=== PATIENT | female | born 1945 | race Caucasian/White ===

== ENCOUNTER 2017-02-11 12:09 | Inpatient (IN) | payer MEDICARE, OTHER ==
[~2017-02-11] VITALS: Ht 167.6 cm; Wt 57.8 kg
[~2017-02-11 12:09] MED LIST: DIVA250T51 PO; Divalproex Sodium PO; LEVO25TA6 PO
[2017-02-11 13:55] LABS: Basophils # (auto) 0 uL; Basophils % (auto) 0.1 % (0.0-2.0); CONDITION Y; Eosinophils # (auto) 0.1 uL; Eosinophils % (auto) 1.9 % (0.0-7.0); Hematocrit 36.9 % (36.0-46.0); Hemoglobin 12.5 g/dL (12.2-16.2); Lymphocytes # (auto) 1.1 uL; Lymphocytes % (auto) 23.7 % (10.0-50.0); Mean Corpuscular Hemoglobin 33.6 pg (28.0-32.0); Mean Corpuscular Hgb Conc. 33.9 g/dL (32.0-36.0); Mean Corpuscular Volume 99.1 fL (80.0-100.0); Mean Platelet Volume 8.3 fL (7.4-10.4); Monocytes # (auto) 0.5 uL; Monocytes % (auto) 10.7 % (0.0-12.0); Neutrophils % (auto) 63.6 % (37.0-80.0); Platelet Count (auto) 152 10^3/uL (140-450); Red Cell Distribution Width 13.8 % (11.6-16.0); White Blood Cell 4.7 10^3/uL (4.4-10.8)
[2017-02-11 14:01] LABS: INR 0.99 (0.9-1.15); Partial Thromboplastin Time 23.8 sec (22.64-33.71); Prothrombin Time 10.8 sec (9.37-12.3)
[2017-02-11 14:16] LABS: Albumin 3.6 g/dL (3.4-5.0); Alkaline Phosphatase 33 U/L (45-117); Anion Gap 7 (5-15); Aspartate Aminotransferase 12 U/L (15-37); BUN/Creatinine Ratio 15.2; Bilirubin, Total 0.5 mg/dL (0.2-1.0); Blood Urea Nitrogen 23 mg/dL (7-18); Calcium 9.2 mg/dL (8.5-10.1); Carbon Dioxide 28 mmol/L (21-32); Chloride 103 mmol/L (98-107); GFR African American 44 mL/min; GFR Non-African American 36 mL/min; Glucose 109 mg/dL (74-106); Potassium 5.1 mmol/L (3.5-5.1); Sodium 138 mmol/L (136-145); Total Protein 7.1 g/dL (6.4-8.2)
[2017-02-11] MEDS ORDERED: SODIUM CHLORIDE 0.9% 1,000 ML IVB ONE (16:34)
[2017-02-11 16:43] LABS: Urine Bilirubin Negative (Negative); Urine Blood Negative /uL (Negative); Urine Color Yellow (Yellow); Urine Glucose Normal (Normal); Urine Ketone Negative (Negative); Urine Mucus FEW (None Seen); Urine Nitrite Negative (Negative); Urine RBC 4 /hpf (0 - 4); Urine Squamous Epithelial Cell MANY /hpf (<5); Urine pH 5.5 (5.0-8.0)
[2017-02-11] MEDS ORDERED: HYDROcodone-ACET 5/325MG TAB PO PRN (18:30)
[2017-02-11] MEDS ORDERED: DOCUSATE SOD 100 MG CAP PO PRN (18:30)
[2017-02-11] MEDS ORDERED: MORPHINE SULF INJ 2 MG/ML SYRINGE 1ML IV PRN ×2 (18:30)
[2017-02-11] MEDS ORDERED: ONDANSETRON HCL 4 MG/2 ML VIAL IV PRN (18:30)
[2017-02-11] MEDS ORDERED: ASPirin-EC 81 mg tab PO ONE (18:30)
[2017-02-11] MEDS ORDERED: TEMAZEPAM 15 MG CAP PO PRN (18:30)
[2017-02-11] MEDS ORDERED: NITROGLYCERIN 0.4 MG SL TAB SL PRN (18:30)
[2017-02-11] MEDS ORDERED: ACETAMINOPHEN 325 MG TAB PO PRN (18:30)
[2017-02-11] MEDS ORDERED: MULTIPLE VITAMIN TAB PO ONE (19:00)
[2017-02-11] MEDS: ENOXAPARIN SOD 40 MG/0.4 ML SYRINGE SC SCH (20:23)
[2017-02-11 21:19] VITALS: BP 119/75
[2017-02-11] MEDS: SODIUM CHLOR 0.9% PF (SALINE LOCK) 10ML VIAL IV SCH (22:00)
[2017-02-11] MEDS: ATORVASTATIN 20 MG TAB PO SCH (22:00)
[2017-02-11] MEDS ORDERED: NALOXONE HCL 1MG/ML 2ML SYRINGE ONE (22:30)
[2017-02-11] MEDS: IPRATROPIUM BROM 0.5 MG/2.5ML INH SOL NEB SCH (22:51)
[2017-02-11] MEDS: ALBUTEROL SULF 2.5 MG/0.5ML(0.5%) NEB SOLN NEB SCH (22:52)
[2017-02-11] MEDS ORDERED: NALOXONE HCL 1MG/ML 2ML SYRINGE IV ONE (23:00)
[2017-02-11] MEDS ORDERED: LORazepam 2MG/ML-1ML VIAL ONE (23:10)
[2017-02-11] MEDS ORDERED: LORazepam 2MG/ML-1ML VIAL IV ONE (23:45)
[2017-02-12 04:04] LABS: Basophils # (auto) 0 uL; CONDITION Y; Eosinophils # (auto) 0 uL; Eosinophils % (auto) 0.3 % (0.0-7.0); Hematocrit 33.6 % (36.0-46.0); Hemoglobin 11.5 g/dL (12.2-16.2); Lymphocytes # (auto) 1.2 uL; Lymphocytes % (auto) 25.1 % (10.0-50.0); Mean Corpuscular Hemoglobin 33.8 pg (28.0-32.0); Mean Corpuscular Hgb Conc. 34.1 g/dL (32.0-36.0); Mean Corpuscular Volume 99.2 fL (80.0-100.0); Mean Platelet Volume 7.8 fL (7.4-10.4); Monocytes # (auto) 0.3 uL; Monocytes % (auto) 6.7 % (0.0-12.0); Neutrophils # (auto) 3.2 uL; Neutrophils % (auto) 67.9 % (37.0-80.0); Platelet Count (auto) 159 10^3/uL (140-450); Red Cell Distribution Width 13.6 % (11.6-16.0); White Blood Cell 4.7 10^3/uL (4.4-10.8)
[2017-02-12 04:28] LABS: Albumin 3.3 g/dL (3.4-5.0); Calcium 8.6 mg/dL (8.5-10.1); Potassium 4.7 mmol/L (3.5-5.1)
[2017-02-12 04:29] LABS: BUN/Creatinine Ratio 21.6
[2017-02-12 04:38] LABS: Bilirubin, Total 0.5 mg/dL (0.2-1.0); Total Protein 6.5 g/dL (6.4-8.2)
[2017-02-12] MEDS: SODIUM CHLOR 0.9% PF (SALINE LOCK) 10ML VIAL IV SCH ×3 (06:10→21:36)
[2017-02-12] MEDS: IPRATROPIUM BROM 0.5 MG/2.5ML INH SOL NEB SCH ×3 (06:39→18:58)
[2017-02-12] MEDS: ALBUTEROL SULF 2.5 MG/0.5ML(0.5%) NEB SOLN NEB SCH ×3 (06:39→18:58)
[2017-02-12] MEDS: LEVOTHYROXINE SODIUM 25 MCG TAB PO SCH (08:09)
[2017-02-12 08:50] VITALS: BP 133/52
[2017-02-12] MEDS: ASPirin-EC 81 mg tab PO SCH (08:56)
[2017-02-12] MEDS: MULTIPLE VITAMIN TAB PO SCH (08:56)
[2017-02-12] MEDS: FLUoxetine HCL 20 MG CAP PO SCH (08:56)
[2017-02-12 09:14] VITALS: BP 133/52
[2017-02-12 13:00] VITALS: BP 122/54
[2017-02-12] MEDS ORDERED: MORPHINE SULFATE 4 MG/ML SYRG IV PRN ×2 (14:50)
[2017-02-12] MEDS ORDERED: LORazepam 2MG/ML-1ML VIAL IV PRN (16:00)
[2017-02-12 17:00] VITALS: BP 114/56
[2017-02-12] MEDS: BOOST PLUS 8 ounce PO SCH (18:21)
[2017-02-12] MEDS: ENOXAPARIN SOD 40 MG/0.4 ML SYRINGE SC SCH (20:36)
[2017-02-12] MEDS: ATORVASTATIN 20 MG TAB PO SCH (21:36)
[2017-02-12 22:14] VITALS: BP 113/55
[2017-02-13 05:24] VITALS: BP 101/57
[2017-02-13] MEDS: LEVOTHYROXINE SODIUM 25 MCG TAB PO SCH (06:06)
[2017-02-13] MEDS: SODIUM CHLOR 0.9% PF (SALINE LOCK) 10ML VIAL IV SCH ×2 (06:06→13:43)
[2017-02-13] MEDS: IPRATROPIUM BROM 0.5 MG/2.5ML INH SOL NEB SCH ×2 (06:20→12:11)
[2017-02-13] MEDS: ALBUTEROL SULF 2.5 MG/0.5ML(0.5%) NEB SOLN NEB SCH ×2 (06:20→12:12)
[2017-02-13 06:27] LABS: Basophils # (auto) 0 uL; Basophils % (auto) 0.3 % (0.0-2.0); CONDITION Y; Eosinophils # (auto) 0 uL; Eosinophils % (auto) 0.6 % (0.0-7.0); Hematocrit 32.7 % (36.0-46.0); Hemoglobin 11.2 g/dL (12.2-16.2); Lymphocytes # (auto) 1.2 uL; Lymphocytes % (auto) 32.3 % (10.0-50.0); Mean Corpuscular Hemoglobin 33.9 pg (28.0-32.0); Mean Corpuscular Hgb Conc. 34.2 g/dL (32.0-36.0); Mean Corpuscular Volume 99.2 fL (80.0-100.0); Mean Platelet Volume 8.2 fL (7.4-10.4); Monocytes # (auto) 0.4 uL; Monocytes % (auto) 10.7 % (0.0-12.0); Neutrophils # (auto) 2.1 uL; Neutrophils % (auto) 56.1 % (37.0-80.0); Platelet Count (auto) 151 10^3/uL (140-450); Red Cell Distribution Width 13.5 % (11.6-16.0); White Blood Cell 3.8 10^3/uL (4.4-10.8)
[2017-02-13 07:06] LABS: Albumin 3.2 g/dL (3.4-5.0); BUN/Creatinine Ratio 24.4; Bilirubin, Total 0.4 mg/dL (0.2-1.0); Calcium 8.4 mg/dL (8.5-10.1); Potassium 3.9 mmol/L (3.5-5.1); Total Protein 5.9 g/dL (6.4-8.2)
[2017-02-13 08:00] VITALS: BP 124/71
[2017-02-13] MEDS: BOOST PLUS 8 ounce PO SCH ×2 (08:20→13:43)
[2017-02-13 09:00] VITALS: BP_SYST 124; BP_SYST 155; BP_DIAS 71; BP_DIAS 94
[2017-02-13] MEDS: FLUoxetine HCL 20 MG CAP PO SCH (09:46)
[2017-02-13] MEDS: ASPirin-EC 81 mg tab PO SCH (09:46)
[2017-02-13] MEDS: MULTIPLE VITAMIN TAB PO SCH (09:46)
[2017-02-13] MEDS ORDERED: FOLI1TAB6 PO (09:48)
[2017-02-13] MEDS ORDERED: CELE100C82 PO (09:49)
[2017-02-13 13:01] VITALS: BP 149/74
[2017-02-13] MEDS ORDERED: DIVA250T6 PO (15:39)
[2017-02-13 16:02] VITALS: BP 124/71
== END 2017-02-13 17:05 | disposition home or self-care (01) | DRG 100 ==
LOC: ER 12:14 → TELE 12:15 → TELE-WESTW 02-12 11:20
PROVIDERS: ADMIT Internal Medicine; ATTEND Internal Medicine
DX: G40.909 Epilepsy, unspecified, not intractable, without status epilepticus (principal); G92 Toxic encephalopathy; N17.9 Acute kidney failure, unspecified; E03.9 Hypothyroidism, unspecified; E86.0 Dehydration; F32.9 Major depressive disorder, single episode, unspecified; B19.20 Unspecified viral hepatitis C without hepatic coma; G47.00 Insomnia, unspecified; K59.00 Constipation, unspecified; G89.4 Chronic pain syndrome; F15.10 Other stimulant abuse, uncomplicated; J45.909 Unspecified asthma, uncomplicated; N18.3 Chronic kidney disease, stage 3 (moderate); F41.9 Anxiety disorder, unspecified; R29.6 Repeated falls; Z79.899 Other long term (current) drug therapy; Z82.49 Family history of ischemic heart disease and other diseases of the circulatory system; Z83.3 Family history of diabetes mellitus; Z88.0 Allergy status to penicillin; Z90.89 Acquired absence of other organs; Z90.710 Acquired absence of both cervix and uterus; Z87.891 Personal history of nicotine dependence; Z80.8 Family history of malignant neoplasm of other organs or systems
CPT/HCPCS: 36415; 70450; 71020; 80053; 80307; 81001; 82962; 83735; 84443; 84484; 85025; 85610; 85730; 92610; 93005; 93306; 93886; 94640; 94761; 95819; 96361; 96374; 96375; J2405

== ENCOUNTER 2017-03-30 05:46 | Emergency (ER) | payer MEDICARE, OTHER ==
[~2017-03-30] VITALS: Ht 157.5 cm; Wt 59.0 kg
[~2017-03-30 05:46] MED LIST changes: +CELE100C82 PO; -DIVA250T51 PO; +DIVA250T6 PO; -Divalproex Sodium PO; +FOLI1TAB6 PO
[2017-03-30] MEDS ORDERED: LORazepam 2MG/ML-1ML VIAL ONE (06:31)
[2017-03-30] MEDS ORDERED: LORazepam 2MG/ML-1ML VIAL IV ONE (07:00)
[2017-03-30 07:04] LABS: Basophils # (auto) 0 uL; Basophils % (auto) 0.3 % (0.0-2.0); CONDITION Y; DEFINITIVE SEE PRINTOUT; Eosinophils # (auto) 0.1 uL; Eosinophils % (auto) 1.2 % (0.0-7.0); Hematocrit 35.5 % (36.0-46.0); Hemoglobin 11.7 g/dL (12.2-16.2); Lymphocytes # (auto) 1.2 uL; Mean Corpuscular Hemoglobin 33.8 pg (28.0-32.0); Mean Corpuscular Hgb Conc. 33.1 g/dL (32.0-36.0); Mean Corpuscular Volume 102.2 fL (80.0-100.0); Mean Platelet Volume 7.6 fL (7.4-10.4); Monocytes # (auto) 0.4 uL; Monocytes % (auto) 7.2 % (0.0-12.0); Neutrophils # (auto) 3.7 uL; Neutrophils % (auto) 68.3 % (37.0-80.0); Platelet Count (auto) 76 10^3/uL (140-450); Red Cell Distribution Width 12.7 % (11.6-16.0); White Blood Cell 5.4 10^3/uL (4.4-10.8)
[2017-03-30 07:04] LABS: Urine Bilirubin Negative (Negative); Urine Blood Negative /uL (Negative); Urine Color Yellow (Yellow); Urine Glucose Normal (Normal); Urine Hyaline Cast FEW /lpf (0 - 2); Urine Ketone Negative (Negative); Urine Mucus FEW (None Seen); Urine Nitrite Negative (Negative); Urine RBC 1 /hpf (0 - 4); Urine Squamous Epithelial Cell FEW /hpf (<5); Urine Urobilinogen Normal (Negative)
[2017-03-30 07:30] LABS: Acetaminophen < 2.0 ug/mL (10-30); Albumin 3.4 g/dL (3.4-5.0); Anion Gap 11 (5-15); Aspartate Aminotransferase 10 U/L (15-37); BUN/Creatinine Ratio 12.5; Blood Urea Nitrogen 16 mg/dL (7-18); Calcium 8.6 mg/dL (8.5-10.1); Carbon Dioxide 22 mmol/L (21-32); Chloride 109 mmol/L (98-107); GFR African American 53 mL/min; GFR Non-African American 44 mL/min; Glucose 133 mg/dL (74-106); Magnesium 2.5 mg/dL (1.6-2.6); Salicylate 3.1 mg/dL (2.8-20.0); Sodium 142 mmol/L (136-145)
[2017-03-30 07:33] LABS: Alkaline Phosphatase 36 U/L (45-117); Bilirubin, Total 0.2 mg/dL (0.2-1.0); Total Protein 6.8 g/dL (6.4-8.2)
[2017-03-30 15:09] VITALS: BP 160/69
== END 2017-03-30 14:59 | disposition home or self-care (01) ==
LOC: EDBD 05:46 → ER 05:46
DX: G40.909 Epilepsy, unspecified, not intractable, without status epilepticus (principal); R41.82 Altered mental status, unspecified; F11.10 Opioid abuse, uncomplicated; E11.21 Type 2 diabetes mellitus with diabetic nephropathy; D53.9 Nutritional anemia, unspecified; Z90.710 Acquired absence of both cervix and uterus
CPT/HCPCS: 36415; 51702; 70450; 71010; 80053; 80164; 80185; 80307; 80320; 80329; 81001; 83735; 85025; 96374; 99285; J2060

== ENCOUNTER 2017-04-02 07:34 | Emergency (ER) | payer MEDICARE, OTHER ==
[~2017-04-02] VITALS: Ht 167.6 cm; Wt 54.4 kg
[2017-04-02] MEDS ORDERED: OLANZapine 5 MG TAB PO ONE ×2 (08:15→14:30)
[2017-04-02] MEDS ORDERED: ALPRAZolam 0.5 MG TAB PO ONE (08:15)
[2017-04-02] MEDS ORDERED: SODIUM CHLORIDE 0.9% 1,000 ML IV ONE (08:25)
[2017-04-02 09:27] LABS: Basophils # (auto) 0 uL; Basophils % (auto) 0.2 % (0.0-2.0); CONDITION Y; Eosinophils # (auto) 0 uL; Eosinophils % (auto) 0.4 % (0.0-7.0); Hematocrit 35.6 % (36.0-46.0); Hemoglobin 12.4 g/dL (12.2-16.2); Lymphocytes # (auto) 1.2 uL; Lymphocytes % (auto) 14.9 % (10.0-50.0); Mean Corpuscular Hemoglobin 34.2 pg (28.0-32.0); Mean Corpuscular Hgb Conc. 34.9 g/dL (32.0-36.0); Mean Platelet Volume 6.9 fL (7.4-10.4); Monocytes # (auto) 1.1 uL; Neutrophils # (auto) 5.6 uL; Neutrophils % (auto) 70.5 % (37.0-80.0); Platelet Count (auto) 224 10^3/uL (140-450); Red Cell Distribution Width 12.7 % (11.6-16.0)
[2017-04-02 09:47] LABS: Albumin 3.8 g/dL (3.4-5.0); BUN/Creatinine Ratio 11.4; Calcium 9.2 mg/dL (8.5-10.1); Magnesium 2.1 mg/dL (1.6-2.6); Potassium 3.1 mmol/L (3.5-5.1)
[2017-04-02 09:50] LABS: Bilirubin, Total 0.5 mg/dL (0.2-1.0); Total Protein 6.9 g/dL (6.4-8.2)
[2017-04-02 10:06] LABS: Urine Bilirubin Negative (Negative); Urine Blood TRACE /uL (Negative); Urine Color Yellow (Yellow); Urine Glucose Normal (Normal); Urine Ketone TRACE (Negative); Urine Nitrite Negative (Negative); Urine RBC 1 /hpf (0 - 4); Urine Squamous Epithelial Cell FEW /hpf (<5)
[2017-04-02] MEDS ORDERED: POTASSIUM CHL 10% (20 MEQ/15ML) ORAL SOLN PO ONE (11:30)
[2017-04-02] MEDS ORDERED: cefTRIAXone 1GM/50ML D5W 50 ML IV ONE (11:30)
[2017-04-02 14:04] VITALS: BP 113/62
== END 2017-04-02 14:33 | disposition home or self-care (01) ==
LOC: EDBD 07:34 → EDUNIT# 07:37 → ER 07:37
DX: F20.9 Schizophrenia, unspecified (principal); E87.6 Hypokalemia; N39.0 Urinary tract infection, site not specified
CPT/HCPCS: 36415; 80053; 80307; 81001; 83036; 83735; 84443; 85025; 93005; 94761; 96361; 96365; 99285; J0696; J7030

== ENCOUNTER 2018-01-10 09:10 | Inpatient (IN) | payer MEDICARE, OTHER ==
[~2018-01-10] VITALS: Ht 154.9 cm; Wt 52.5 kg
[~2018-01-10 09:10] MED LIST changes: +ALPR0.254 PO; +B-CO-15 OR; +CALC667C PO; +DIVA500T59 PO; +ESTR0.3T PO; +FLUO-125 PO; +KEP500T PO; +OME20T PO; +PROP40TA59 PO; +PROP60CA8 PO; +TRAM50TA2 PO; +VENL37.56 PO
[2018-01-10] MEDS ORDERED: LORazepam 2MG/ML-1ML VIAL IV ONE (10:15)
[2018-01-10] MEDS ORDERED: SODIUM CHLORIDE 0.9% 1,000 ML IVB ONE (10:18)
[2018-01-10] MEDS ORDERED: ONDANSETRON HCL 4 MG/2 ML VIAL IV ONE (10:30)
[2018-01-10] MEDS ORDERED: SODIUM CHLORIDE 0.9% 1,000 ML IV ONE (10:30)
[2018-01-10 10:31] LABS: Basophils # (auto) 0 uL; Eosinophils # (auto) 0 uL; Lymphocytes # (auto) 1.2 uL; Monocytes # (auto) 0.5 uL; Neutrophils # (auto) 5.1 uL; Red Blood Cells 3.67 10^6/uL (4.0-5.20); White Blood Cell 6.9 10^3/uL (4.4-10.8)
[2018-01-10 10:32] LABS: Basophils % (auto) 0.3 % (0.0-2.0); Hematocrit 37.9 % (36.0-46.0); Hemoglobin 12.9 g/dL (12.2-16.2); Lymphocytes % (auto) 17.8 % (10.0-50.0); Mean Corpuscular Hemoglobin 35.1 pg (28.0-32.0); Mean Corpuscular Hgb Conc. 34.1 g/dL (32.0-36.0); Mean Corpuscular Volume 103.1 fL (80.0-100.0); Monocytes % (auto) 7.7 % (0.0-12.0); Neutrophils % (auto) 74.2 % (37.0-80.0); Platelet Count (auto) 116 10^3/uL (140-450); Red Cell Distribution Width 12.8 % (11.8-14.3)
[2018-01-10 10:49] LABS: Potassium 4.3 mmol/L (3.5-5.1)
[2018-01-10 10:50] LABS: Albumin 3.7 g/dL (3.4-5.0)
[2018-01-10 10:51] LABS: Bilirubin, Total 0.5 mg/dL (0.2-1.0)
[2018-01-10 11:01] LABS: Urine Bacteria FEW /hpf (None Seen); Urine Blood 2+ /uL (Negative); Urine WBC 53 /hpf (0 - 5)
[2018-01-10 11:25] LABS: Alcohol, Urine < 3.0 mg/dL (0-5); Amphetamine Screen, Urine NEGATIVE (NEGATIVE); Barbiturate Scree,Urine NEGATIVE (NEGATIVE); Benzodiazephine Screen, Urine NEGATIVE (NEGATIVE); Cannabinoid Screen, Urine POSITIVE (NEGATIVE); Cocaine Screen, Urine NEGATIVE (NEGATIVE); Opiate Scree,Urine NEGATIVE (NEGATIVE); Phencyclidine Screen, Urine NEGATIVE (NEGATIVE)
[2018-01-10] MEDS ORDERED: cefTRIAXone 1GM/10ml IVPUSH 10 ML IV ONE (12:00)
[2018-01-10] MEDS ORDERED: ACETAMINOPHEN 650 MG RECT SUPP PR ONE ×2 (14:10→14:15)
[2018-01-10] MEDS ORDERED: DEXTROSE (50%) 50ML SYRG IV PRN (16:00)
[2018-01-10] MEDS ORDERED: NITROGLYCERIN 0.4 MG SL TAB SL PRN (16:00)
[2018-01-10] MEDS ORDERED: MORPHINE SULFATE 8mg/ml INJ SDV IV PRN ×2 (16:00)
[2018-01-10] MEDS ORDERED: ONDANSETRON HCL 4 MG/2 ML VIAL IV PRN (16:00)
[2018-01-10] MEDS ORDERED: ACETAMINOPHEN 325 MG TAB PO PRN (16:00)
[2018-01-10] MEDS ORDERED: DOCUSATE SOD 100 MG CAP PO PRN (16:00)
[2018-01-10] MEDS ORDERED: LORazepam 2MG/ML-1ML VIAL IV PRN (16:00)
[2018-01-10] MEDS ORDERED: TEMAZEPAM 15 MG CAP PO PRN (16:00)
[2018-01-10] MEDS ORDERED: HYDROcodone-ACET 5/325MG TAB PO PRN (16:00)
[2018-01-10] MEDS ORDERED: LEVETIRACETAM INJ 500 MG in D5W 5% 100 ML IV ONE (16:15)
[2018-01-10] MEDS: SODIUM CHLORIDE 0.9% 1,000 ML IV SCH (16:38)
[2018-01-10] MEDS: InsuLIN REG 1unit/0.01ml Soln (100units/ml) SC SCH ×2 (17:00→22:00)
[2018-01-10] MEDS: FAMOTIDINE 20 MG TAB PO SCH (17:00)
[2018-01-10] MEDS: ACCU-CHEK COMFORT CURVE STRIP VI SCH ×2 (17:39→22:09)
[2018-01-10 20:00] VITALS: BP 118/65
[2018-01-10 22:00] VITALS: BP 118/65
[2018-01-10] MEDS ORDERED: LEVETIRACETAM 500 MG/5ML INJ IV ONE (22:40)
[2018-01-10] MEDS: LEVETIRACETAM INJ 500 MG in D5W 5% 100 ML IV SCH (23:08)
[2018-01-11] VITALS (7 sets, daily range): BP systolic 90–142; BP diastolic 60–76
[2018-01-11] MEDS: InsuLIN REG 1unit/0.01ml Soln (100units/ml) SC SCH ×4 (06:36→21:51)
[2018-01-11] MEDS: ACCU-CHEK COMFORT CURVE STRIP VI SCH ×4 (06:36→21:51)
[2018-01-11 06:50] LABS: Mean Corpuscular Hemoglobin 36.6 pg (28.0-32.0); Red Cell Distribution Width 12.7 % (11.8-14.3)
[2018-01-11 06:52] LABS: Hematocrit 32.3 % (36.0-46.0); Hemoglobin 11.4 g/dL (12.2-16.2); Mean Corpuscular Hgb Conc. 35.4 g/dL (32.0-36.0); Mean Corpuscular Volume 103.2 fL (80.0-100.0); Platelet Count (auto) 80 10^3/uL (140-450); Red Blood Cells 3.12 10^6/uL (4.0-5.20); White Blood Cell 6.7 10^3/uL (4.4-10.8)
[2018-01-11 06:55] LABS: Band Neutrophils % (manual) 0; Basophils % (manual) 0 (0.0-2.0); Blast Cells 0; Eosinophils % (manual) 0 (0-7); Metamyelocytes % 0; Myelocytes % 0; Promyelocytes % 0; Reactive Lymphocytes 0
[2018-01-11 07:06] LABS: Albumin 3.2 g/dL (3.4-5.0); BUN/Creatinine Ratio 23.3; Bilirubin, Total 0.5 mg/dL (0.2-1.0); Calcium 8.3 mg/dL (8.5-10.1); Potassium 3.2 mmol/L (3.5-5.1)
[2018-01-11] MEDS: SODIUM CHLORIDE 0.9% 1,000 ML IV SCH (09:08)
[2018-01-11] MEDS: FAMOTIDINE 20 MG TAB PO SCH (10:25)
[2018-01-11] MEDS: MULTIPLE VITAMIN TAB PO SCH (10:25)
[2018-01-11] MEDS: cefTRIAXone 1GM/10ml IVPUSH 10 ML IV SCH (10:26)
[2018-01-11] MEDS: LEVETIRACETAM INJ 500 MG in D5W 5% 100 ML IV SCH ×2 (10:30→21:50)
[2018-01-11 10:39] LABS: Lymphocytes % (manual) 24 (10.0-50.0); Monocytes % (manual) 20 (0-12)
[2018-01-11] MEDS ORDERED: POTASSIUM CHL 10% (20 MEQ/15ML) 15ml ORAL SOLN PO ONE (12:30)
[2018-01-12] MEDS: SODIUM CHLORIDE 0.9% 1,000 ML IV SCH (01:37)
[2018-01-12 05:00] VITALS: BP 140/64
[2018-01-12] MEDS: ACCU-CHEK COMFORT CURVE STRIP VI SCH (06:50)
[2018-01-12] MEDS: InsuLIN REG 1unit/0.01ml Soln (100units/ml) SC SCH (06:50)
[2018-01-12 09:00] VITALS: BP 139/83
[2018-01-12] MEDS: MULTIPLE VITAMIN TAB PO SCH (09:46)
[2018-01-12] MEDS: LEVETIRACETAM INJ 500 MG in D5W 5% 100 ML IV SCH (09:46)
[2018-01-12] MEDS: cefTRIAXone 1GM/10ml IVPUSH 10 ML IV SCH (09:46)
[2018-01-12] MEDS: FAMOTIDINE 20 MG TAB PO SCH (09:47)
[2018-01-12] MEDS ORDERED: LORazepam 0.5 MG TAB PO ONE (11:00)
[2018-01-12 12:50] VITALS: BP 145/67
[2018-01-12 12:53] VITALS: BP 145/67
== END 2018-01-12 14:30 | disposition home or self-care (01) | DRG 100 ==
LOC: EDBD 09:10 → ER 09:15 → TELE 09:16 → TELE-WESTW 17:17
PROVIDERS: ADMIT Internal Medicine; ATTEND Internal Medicine
DX: G40.409 Other generalized epilepsy and epileptic syndromes, not intractable, without status epilepticus (principal); G93.41 Metabolic encephalopathy; G93.1 Anoxic brain damage, not elsewhere classified; N39.0 Urinary tract infection, site not specified; E11.21 Type 2 diabetes mellitus with diabetic nephropathy; E11.65 Type 2 diabetes mellitus with hyperglycemia; E11.22 Type 2 diabetes mellitus with diabetic chronic kidney disease; F12.10 Cannabis abuse, uncomplicated; F20.9 Schizophrenia, unspecified; F32.9 Major depressive disorder, single episode, unspecified; F41.9 Anxiety disorder, unspecified; I12.9 Hypertensive chronic kidney disease with stage 1 through stage 4 chronic kidney disease, or unspecified chronic kidney disease; K21.9 Gastro-esophageal reflux disease without esophagitis; N18.3 Chronic kidney disease, stage 3 (moderate); R32 Unspecified urinary incontinence; Z82.49 Family history of ischemic heart disease and other diseases of the circulatory system; Z83.3 Family history of diabetes mellitus; Z90.710 Acquired absence of both cervix and uterus; Z88.0 Allergy status to penicillin; Z79.4 Long term (current) use of insulin
CPT/HCPCS: 36415; 51702; 70450; 71045; 80053; 80164; 80307; 81001; 82962; 83036; 83735; 84443; 84484; 85007; 85025; 85027; 87081; 87086; 87088; 87186; 93005; 94761; 96361; 96374; 96375; 97116; 97163; 97530; J1815; J2405; J7060

== ENCOUNTER → 2018-01-21 | Outpatient (CLI) | payer MEDICARE, OTHER ==
[2018-01-21 12:38] LABS: Basophils # (auto) 0 uL; Eosinophils # (auto) 0 uL; Hemoglobin 13.8 g/dL (12.2-16.2); Mean Corpuscular Hemoglobin 35.5 pg (28.0-32.0); Red Blood Cells 3.89 10^6/uL (4.0-5.20)
[2018-01-21 12:41] LABS: Basophils % (auto) 0.9 % (0.0-2.0); Eosinophils % (auto) 0.3 % (0.0-7.0); Hematocrit 40.5 % (36.0-46.0); Lymphocytes # (auto) 1.8 uL; Lymphocytes % (auto) 38.1 % (10.0-50.0); Mean Corpuscular Volume 104.2 fL (80.0-100.0); Monocytes # (auto) 0.6 uL; Neutrophils # (auto) 2.3 uL; Neutrophils % (auto) 48.7 % (37.0-80.0); Nucleated Red Blood Cells % 0.3 %; Red Cell Distribution Width 13.4 % (11.8-14.3); Urine Bacteria NONE SEEN /hpf (None Seen); Urine Blood Negative /uL (Negative); Urine Specific Gravity 1.039 (1.001-1.035); Urine WBC 12 /hpf (0 - 5); White Blood Cell 4.7 10^3/uL (4.4-10.8)
[2018-01-21 12:43] LABS: Platelet Count (auto) 118 10^3/uL (140-450)
[2018-01-21 13:15] LABS: Albumin 3.9 g/dL (3.4-5.0); BUN/Creatinine Ratio 15.3; Bilirubin, Total 0.6 mg/dL (0.2-1.0); Calcium 9.4 mg/dL (8.5-10.1); Potassium 3.7 mmol/L (3.5-5.1); Total Protein 6.9 g/dL (6.4-8.2)
== END | disposition home or self-care (01) ==
LOC: LAB 11:41
PROVIDERS: ATTEND Internal Medicine
DX: G40.909 Epilepsy, unspecified, not intractable, without status epilepticus (principal); F41.1 Generalized anxiety disorder; E03.9 Hypothyroidism, unspecified; K21.9 Gastro-esophageal reflux disease without esophagitis; E11.22 Type 2 diabetes mellitus with diabetic chronic kidney disease; E11.21 Type 2 diabetes mellitus with diabetic nephropathy; E11.65 Type 2 diabetes mellitus with hyperglycemia; I12.9 Hypertensive chronic kidney disease with stage 1 through stage 4 chronic kidney disease, or unspecified chronic kidney disease; N18.3 Chronic kidney disease, stage 3 (moderate); Z79.899 Other long term (current) drug therapy; Z79.4 Long term (current) use of insulin
CPT/HCPCS: 36415; 80053; 81001; 84443; 85025

== ENCOUNTER → 2018-01-28 | Outpatient (CLI) | payer MEDICARE, OTHER | END | disposition home or self-care (01) | LOC: LAB 15:15 | PROVIDERS: ATTEND Internal Medicine | DX: Z12.11 Encounter for screening for malignant neoplasm of colon (principal); E03.9 Hypothyroidism, unspecified; F41.1 Generalized anxiety disorder; G40.909 Epilepsy, unspecified, not intractable, without status epilepticus | CPT/HCPCS: 82270 ==

== ENCOUNTER → 2018-01-29 | Outpatient (CLI) | payer MEDICARE, OTHER | END | disposition home or self-care (01) | LOC: LAB 11:24 | PROVIDERS: ATTEND Internal Medicine | DX: D64.9 Anemia, unspecified (principal); D69.6 Thrombocytopenia, unspecified; E11.22 Type 2 diabetes mellitus with diabetic chronic kidney disease; N18.3 Chronic kidney disease, stage 3 (moderate); E03.9 Hypothyroidism, unspecified | CPT/HCPCS: 82607 ==

== ENCOUNTER → 2018-03-17 | Outpatient (CLI) | payer MEDICARE, OTHER ==
[~2018-03-17] MED LIST changes: +PROP60CA34 PO; -PROP60CA8 PO
[2018-03-17 10:04] LABS: Urine Bacteria NONE SEEN /hpf (None Seen); Urine Blood Negative /uL (Negative); Urine WBC 4 /hpf (0 - 5)
== END | disposition home or self-care (01) ==
LOC: LAB 09:24
PROVIDERS: ATTEND Internal Medicine
DX: R10.11 Right upper quadrant pain (principal); E11.9 Type 2 diabetes mellitus without complications; I10 Essential (primary) hypertension
CPT/HCPCS: 81001

== ENCOUNTER → 2018-03-18 | Outpatient (CLI) | payer MEDICARE, OTHER | END | disposition home or self-care (01) | LOC: LAB 09:45 | PROVIDERS: ATTEND Internal Medicine Gastroenterology | DX: R10.9 Unspecified abdominal pain (principal); I10 Essential (primary) hypertension; E11.9 Type 2 diabetes mellitus without complications; E03.9 Hypothyroidism, unspecified | CPT/HCPCS: 87522 ==

== ENCOUNTER → 2018-06-01 | Outpatient (CLI) | payer MEDICARE, OTHER ==
[~2018-06-01] MED LIST changes: +DIVA1TAB58 PO; -DIVA250T6 PO
[2018-06-01 13:29] LABS: Basophils # (auto) 0 uL; Eosinophils # (auto) 0 uL; Eosinophils % (auto) 0.7 % (0.0-7.0); Hemoglobin 12.5 g/dL (12.2-16.2); Lymphocytes # (auto) 1.8 uL; Mean Corpuscular Volume 103.5 fL (80.0-100.0); Monocytes # (auto) 0.4 uL; Neutrophils # (auto) 1.5 uL
[2018-06-01 13:31] LABS: Basophils % (auto) 0.3 % (0.0-2.0); Hematocrit 36.3 % (36.0-46.0); Lymphocytes % (auto) 47.9 % (10.0-50.0); Mean Corpuscular Hemoglobin 35.7 pg (28.0-32.0); Mean Corpuscular Hgb Conc. 34.5 g/dL (32.0-36.0); Monocytes % (auto) 10.1 % (0.0-12.0); Nucleated Red Blood Cells % 0.1 %; Platelet Count (auto) 140 10^3/uL (140-450); Red Blood Cells 3.51 10^6/uL (4.0-5.20); Red Cell Distribution Width 12.6 % (11.8-14.3); White Blood Cell 3.7 10^3/uL (4.4-10.8)
[2018-06-01 13:38] LABS: Albumin 3.6 g/dL (3.4-5.0); Calcium 9.4 mg/dL (8.5-10.1); Potassium 4.8 mmol/L (3.5-5.1)
[2018-06-01 13:52] LABS: Bilirubin, Total 0.2 mg/dL (0.2-1.0); Total Protein 6.8 g/dL (6.4-8.2)
== END | disposition home or self-care (01) ==
LOC: LAB 12:34
PROVIDERS: ATTEND Internal Medicine
DX: D50.9 Iron deficiency anemia, unspecified (principal); R56.9 Unspecified convulsions; D69.6 Thrombocytopenia, unspecified; I12.9 Hypertensive chronic kidney disease with stage 1 through stage 4 chronic kidney disease, or unspecified chronic kidney disease; N18.9 Chronic kidney disease, unspecified; Z79.899 Other long term (current) drug therapy
CPT/HCPCS: 36415; 80053; 83036; 85025